=== PATIENT | female | born 1995 | race African-American/Black ===

== ENCOUNTER 2021-10-19 02:36 | Emergency (ER) | payer OTHER ==
[~2021-10-19] VITALS: Ht 157.5 cm; Wt 59.4 kg
[2021-10-19 03:45] VITALS: BP 121/67; TEMP 98.9
== END 2021-10-19 03:45 | disposition home or self-care (01) ==
LOC: ED 02:36
DX: L50.8 Other urticaria (principal)
CPT/HCPCS: 96372; 99282; J2920

== ENCOUNTER 2021-12-28 13:36 | Emergency (ER) | payer OTHER ==
[~2021-12-28] VITALS: Ht 157.5 cm; Wt 59.4 kg
[2021-12-28 16:11] VITALS: BP 99/57; TEMP 99.3
== END 2021-12-28 16:11 | disposition home or self-care (01) ==
LOC: ED 13:36
DX: N61.0 Mastitis without abscess (principal)
CPT/HCPCS: 99282

== ENCOUNTER 2022-06-24 10:01 | Outpatient (CLI) | payer OTHER | END 2022-06-24 18:58 | disposition home or self-care (01) | LOC: US 10:01 | PROVIDERS: ATTEND Nurse Practitioner Family | DX: N93.8 Other specified abnormal uterine and vaginal bleeding (principal) ==